=== PATIENT | male | born 1985 | race African-American/Black ===

== ENCOUNTER 2018-02-06 13:20 | Emergency (ER) | payer SELFPAY ==
--- NOTE | 2018-02-06 13:45 | ED Physician Chart ---
ED Chief Complaint/HPI - Patient Information Date Seen:: 02/06/18 Time Seen:: 13:41 Chief Complaint:: Chest pain History of Present Illness:: 32 yo male had chest pain since 9am today. He described as sharp pain, lasting 4 seconds, every half hour. radiating to right shoulder. Lying flat or on the side seemed to worsen the pain. Patient denied SOB or chest pressure. Allergies:: Allergies Allergy/AdvReac Type Severity Reaction Status Date / Time No Known Allergies Allergy Verified 02/06/18 13:35 Vitals:: Vital Signs - 8 hr 02/06/18 13:35 Temp 98.1 F HR 80 RR 18 BP 146/84 O2 Sat % 96 ED Past Medical History - Past Medical History Past Medical History: No significant medical hx Social History: Smoker, Alcohol, No Drug Use Surgical History: None Family Medical History - Family Member Father Ethnicity: Non- Living Status: Still Living Hx Family Cancer: No Hx Family Coronary Artery Disease: No Hx Family Congestive Heart Failure: No Hx Family Hypertension: Yes Hx Family Stroke: No Hx Family Diabetes: No Hx Family Seizures: No Hx Family Dementia: No Hx Family AIDS: No Hx Family HIV: No Hx Family COPD: No Hx Family Hepatitis: No Hx Family Psychiatric Problems: No Hx Family Tuberculosis: No ED Assessment - Assessment General Assessment: Acute pericarditis ED Septic Shock - . Is Septic Shock (SBP<90, OR Lactate>4 mmol\L) present?: No - <6hrs of presentation: Vital Signs: Vital Signs - 8 hr 02/06/18 13:35 Temp 98.1 F HR 80 RR 18 BP 146/84 O2 Sat % 96 ED Reassessment (Disposition) - Reassessment Reassessment Condition:: Improved - Patient Disposition Discharge/Transfer:: Home
[2018-02-06 13:59] VITALS: BP 146/84
[2018-02-06 14:11] LABS: % BASOPHILS 0.1 % (0.0-2.0); % EOSINOPHILS 0.8 % (0.0-5.0); % LYMPHOCYTES 18.9 % (20.0-50.0); % NEUTROPHILS 71.2 % (40.0-80.0); HEMATOCRIT 48.9 % (41.0-60); HEMOGLOBIN 16.4 gm/dL (12-16); LYMPHOCYTE ABSOLUTE 0.9 Th/cmm (1.5-3.0); MEAN CELL VOLUME 97.3 fl (80-99); MEAN CORPUSCULAR HEMOGLOBIN 32.6 pg (26.0-30.0); MEAN CORPUSCULAR HGB CONC 33.5 pg (28.0-36.0); MEAN PLATELET VOLUME 7.9 fl; MONOCYTE ABSOLUTE 0.4 Th/cmm (0.3-1.0); NEUTROPHILE ABSOLUTE 3.6 Th/cmm (1.8-8.0); PLATELET COUNT 208 Th/cmm (150-400); RED BLOOD COUNT 5.02 Mil/cmm (4.30-5.70); RED CELL DISTRIBUTION WIDTH 12.3 % (11.5-20.0); WHITE BLOOD COUNT 4.9 Th/cmm (4.8-10.8)
--- NOTE | 2018-02-06 14:18 | Diagnostic Imaging Report ---
Portable chest x-ray History: Pain Allowing for portable technique the heart size is normal. No focal pulmonary parenchymal processes. No hilar or mediastinal abnormalities. Impression: No acute abnormalities.
[2018-02-06 14:28] LABS: ALB/GLOB RATIO 1.6 (1.0-1.8); ALBUMIN 4.8 gm/dL (4.2-5.5); ALKALINE PHOSPHATASE 56 U/L (34-104); ANION GAP 7.4 (7.0-16.0); BILIRUBIN,DIRECT 0.29 mg/dL (0.0-0.2); BUN - UREA NITROGEN 11 mg/dL (7-25); CALCIUM SERUM 10.1 mg/dL (8.6-10.3); CARBON DIOXIDE 29.3 mEq/L (21.0-31.0); CHLORIDE 104 mEq/L (98-107); CREATININE - SERUM 0.9 mg/dL (0.7-1.3); GFR AFRICAN-AMERICAN > 60.0 ml/min (>90); GFR NON AFRICAN-AMERICAN > 60.0 ml/min; GLUCOSE 86 mg/dL (70-105); POTASSIUM SERUM 3.7 mEq/L (3.5-5.1); SGOT 17 U/L (13-39); SGPT/ALT 9 U/L (7-52); SODIUM SERUM 137 mEq/L (136-145); TOTAL PROTEIN,SERUM 7.8 gm/dL (6.0-8.3)
== END 2018-02-06 15:55 | disposition home or self-care (01) ==
LOC: ER 13:20
DX: R07.9 Chest pain, unspecified (principal); F17.200 Nicotine dependence, unspecified, uncomplicated
CPT/HCPCS: 36415-UA; 71045-TC; 80053-TC; 82248-TC; 83880-TC; 84443-TC; 84484-TC; 85025-TC; 93005

== ENCOUNTER 2019-03-30 05:46 | Inpatient (IN) | payer BC, MEDICAID ==
--- NOTE | 2019-03-30 06:21 | ED Physician Chart ---
ED Chief Complaint/HPI - Patient Information Date Seen:: 03/30/19 Time Seen:: 06:15 Chief Complaint:: Chest discomfort History of Present Illness:: Pt came in by private auto because of transient left parasternal chest "cramp" sensation that lasted for a few seconds while he was sleeping at about 0530 today. No associated dyspnea or palpitation. Pt exercises at least an hour in the gym twice weekly without exercise limitation. No fever. No cough. Pt currently feels well without chest pain or discomfort. Allergies:: Allergies Allergy/AdvReac Type Severity Reaction Status Date / Time No Known Allergies Allergy Verified 03/30/19 05:59 Vitals:: Vital Signs - 8 hr 03/30/19 05:50 Temp 98.1 F HR 77 RR 18 BP 119/70 O2 Sat % 98 Historian:: Patient Family MD/PCP:: Dr. Barrera. LMP:: N/A Review:: Nurse's Note Reviewed <Erick Navarro - Last Filed: 03/30/19 06:52> - Patient Information Allergies:: Allergies Allergy/AdvReac Type Severity Reaction Status Date / Time No Known Allergies Allergy Verified 03/30/19 05:59 Vitals:: Vital Signs - 8 hr 03/30/19 05:50 Temp 98.1 F HR 77 RR 18 BP 119/70 O2 Sat % 98 <Alfredo Meehan - Last Filed: 03/30/19 10:34> ED Review of Systems - Review of Systems General/Constitutional: No weight loss, No weakness, No edema, No loss of appetite Skin: No skin lesions, No rash, No bruising Head: No light-headedness Eyes: No loss of vision, No pain, No diplopia ENT: No earache, No nasal drainage, No sore throat Neck: No neck pain, No swelling, No thyromegaly, No stiffness Cardio Vascular: No chest pain, No palpitations, No PND, No orthopnea, No edema Pulmonary: No SOB, No cough, No wheezing GI: No nausea, No vomiting, No diarrhea, No pain G/U: No dysuria, No frequency, No hematuria Musculoskeletal: No bone or joint pain, No back pain Endocrine: No polydipsia Psychiatric: No prior psych history, No depression Hematopoietic: No bruising, No lymphadenopathy Neurological: No syncope, No focal symptoms, Weakness, No paresthesia, No headache, No dizziness, No confusion <Erick Navarro - Last Filed: 03/30/19 06:52> ED Past Medical History - Past Medical History Past Medical History: No significant medical hx Family History: HTN (in father) Social History: Non Smoker, Alcohol (occasional.), No Drug Use, Single, Employed , Other (lives with his mother.) Surgical History: None Psychiatricy History: None Medication: None <Erick Navarro - Last Filed: 03/30/19 06:52> Family Medical History - Family Member Father History Unknown: Yes Ethnicity: Non- Living Status: Still Living Hx Family Cancer: No Hx Family Coronary Artery Disease: No Hx Family Congestive Heart Failure: No Hx Family Hypertension: Yes Hx Family Stroke: No Hx Family Diabetes: No Hx Family Seizures: No Hx Family Dementia: No Hx Family AIDS: No Hx Family HIV: No Hx Family COPD: No Hx Family Hepatitis: No Hx Family Psychiatric Problems: No Hx Family Tuberculosis: No <Erick Navarro - Last Filed: 03/30/19 06:52> ED Physical Exam - Physical Examination General/Constitutional: Awake, Well-developed, well-nourished, Alert, No distress, Non-toxic appearing, Ambulatory Other Gen/Cons comments:: Breathes comfortably and speaks clearly. Head: Atraumatic Eyes: Lids, conjuctiva normal, PERRL, EOMI Skin: No rash, Well hydrated, No lymphadenopathy ENMT: External ears, nose nl, Nasal exam nl, Oropharynx nl Neck: Nontender, Full ROM w/o pain, No JVD, No nuchal rigidity, No bruit, No mass Respiratory: Nl effort/Exclusion, Clear to Auscultation, No Wheeze/Rhonchi/Rales Other Respiratory comments:: Chest wall: tatoos are noticed. Nontender to palpation. No open wound, erythema , ecchymosis or swelling. Cardio Vascular: RRR, No murmur, gallop, rubs, NL S1 S2, Carotid/Femoral/Distal pulses equal bilaterally GI: No tenderness/rebounding/guarding, No organomegaly, Nondistended, No mass/ bruits Other GI comments:: Abdomen is soft. Extremities: No tenderness or effusion, normal strength in all extremities, No edema Neuro/Psych: Alert/oriented (oriented x 3), Mood normal, Normal gait, No focal deficits <Erick Navarro - Last Filed: 03/30/19 06:52> ED Labs/Radiology/EKG Results - EKG Interpretations EKG Time:: 06:43 Rate & Rhythm: NSR with VR 69 Comments:: Mild ST elevation c/w J point elevation vs acute pericarditis. <Erick Navarro - Last Filed: 03/30/19 06:52> - Lab Results Results: Laboratory Tests 03/30/19 03/30/19 03/30/19 06:30 06:30 07:00 WBC 5.2 RBC 5.08 Hgb 16.1 Hct 48.4 MCV 95.2 MCH 31.6 H MCHC Differential 33.2 RDW 12.4 Plt Count 220 MPV 7.4 Neutrophils % 66.5 Lymphocytes % 21.4 Monocytes % 9.3 Eosinophils % 2.7 Basophils % 0.1 PT INR PTT (Actin FS) Sodium Potassium Chloride Carbon Dioxide Anion Gap BUN Creatinine Est GFR ( Amer) Est GFR (Non-Af Amer) BUN/Creatinine Ratio Glucose Calcium Troponin I Urine Source RANDOM Urine Color YELLOW Urine Clarity CLEAR Urine pH 8.0 Ur Specific [place] 1.015 Urine Protein NEGATIVE Urine Glucose (UA) NEGATIVE Urine Ketones NEGATIVE Urine Blood NEGATIVE Urine Nitrate NEGATIVE Urine Bilirubin NEGATIVE Urine Urobilinogen 0.2 Ur Leukocyte Esterase NEGATIVE Urine Opiates Screen NEGATIVE Urine Methadone Screen NEGATIVE Ur Barbiturates Screen NEGATIVE Ur Tricyclics Screen NEGATIVE Ur Phencyclidine Scrn NEGATIVE Amphetamines Screen NEGATIVE U Methamphetamines Scrn NEGATIVE U Benzodiazepines Scrn NEGATIVE U Cocaine Metab Screen NEGATIVE U Cannabinoids Screen NEGATIVE 03/30/19 03/30/19 03/30/19 07:00 07:00 07:00 WBC RBC Hgb Hct MCV MCH MCHC Differential RDW Plt Count MPV Neutrophils % Lymphocytes % Monocytes % Eosinophils % Basophils % PT 10.5 INR 1.01 PTT (Actin FS) 30.5 Sodium 140 Potassium 3.5 Chloride 103 Carbon Dioxide 30.2 Anion Gap 10.3 BUN 10 Creatinine 1.0 Est GFR ( Amer) > 60.0 Est GFR (Non-Af Amer) > 60.0 BUN/Creatinine Ratio 10.0 Glucose 115 H Calcium 9.4 Troponin I < 0.01 L Urine Source Urine Color Urine Clarity Urine pH Ur Specific [place] Urine Protein Urine Glucose (UA) Urine Ketones Urine Blood Urine Nitrate Urine Bilirubin Urine Urobilinogen Ur Leukocyte Esterase Urine Opiates Screen Urine Methadone Screen Ur Barbiturates Screen Ur Tricyclics Screen Ur Phencyclidine Scrn Amphetamines Screen U Methamphetamines Scrn U Benzodiazepines Scrn U Cocaine Metab Screen U Cannabinoids Screen <Alfredo Meehan - Last Filed: 03/30/19 10:34> ED Assessment - Assessment General Assessment: atypical chest pain with j point elevation ro subacute pericarditis <Alfredo Meehan - Last Filed: 03/30/19 10:34> ED Septic Shock - . Is Septic Shock (SBP<90, OR Lactate>4 mmol\\L) present?: No - <6hrs of presentation: Vital Signs: Vital Signs - 8 hr 03/30/19 05:50 Temp 98.1 F HR 77 RR 18 BP 119/70 O2 Sat % 98 <Erick Navarro - Last Filed: 03/30/19 06:52> - <6hrs of presentation: Vital Signs: Vital Signs - 8 hr 03/30/19 05:50 Temp 98.1 F HR 77 RR 18 BP 119/70 O2 Sat % 98 <Alfredo Meehan - Last Filed: 03/30/19 10:34> ED Reassessment (Disposition) - Reassessment Reassessment:: 0655 Pt remains stable without chest pain or discomfort. Case has been signed off to Dr. Meehan for continued care and review of pending lab results and CXR. - Diagnosis Diagnosis:: Chest pain <Erick Navarro - Last Filed: 03/30/19 06:52> - Reassessment Reassessment Condition:: Unchanged (will transfer for evaluation ofabnormal ekg) <Alfredo Meehan - Last Filed: 03/30/19 10:34>
[2019-03-30 07:07] LABS: EOSINOPHILE ABSOLUTE 0.1 Th/cmm (0.1-0.4); MONOCYTE ABSOLUTE 0.5 Th/cmm (0.3-1.0)
[2019-03-30 07:16] LABS: % BASOPHILS 0.1 % (0.0-2.0); % EOSINOPHILS 2.7 % (0.0-5.0); % LYMPHOCYTES 21.4 % (20.0-50.0); % MONOCYTES 9.3 % (2.0-10.0); % NEUTROPHILS 66.5 % (40.0-80.0); HEMATOCRIT 48.4 % (41.0-60); HEMOGLOBIN 16.1 gm/dL (12-16); LYMPHOCYTE ABSOLUTE 1.1 Th/cmm (1.5-3.0); MEAN CELL VOLUME 95.2 fl (80-99); MEAN CORPUSCULAR HEMOGLOBIN 31.6 pg (26.0-30.0); MEAN CORPUSCULAR HGB CONC 33.2 pg (28.0-36.0); MEAN PLATELET VOLUME 7.4 fl; NEUTROPHILE ABSOLUTE 3.5 Th/cmm (1.8-8.0); PLATELET COUNT 220 Th/cmm (150-400); RED BLOOD COUNT 5.08 Mil/cmm (4.30-5.70); RED CELL DISTRIBUTION WIDTH 12.4 % (11.5-20.0); WHITE BLOOD COUNT 5.2 Th/cmm (4.8-10.8)
[2019-03-30 07:19] LABS: INR 1.01 (0.5-1.4); PROTHROMBIN TIME (TEST) 10.5 SECONDS (9.5-11.5)
[2019-03-30 07:26] LABS: ANION GAP 10.3 (7.0-16.0); BUN - UREA NITROGEN 10 mg/dL (7-25); CALCIUM SERUM 9.4 mg/dL (8.6-10.3); CARBON DIOXIDE 30.2 mEq/L (21.0-31.0); CHLORIDE 103 mEq/L (98-107); GFR AFRICAN-AMERICAN > 60.0 ml/min (>90); GFR NON AFRICAN-AMERICAN > 60.0 ml/min; GLUCOSE 115 mg/dL (70-105); POTASSIUM SERUM 3.5 mEq/L (3.5-5.1); SODIUM SERUM 140 mEq/L (136-145)
[2019-03-30 08:21] LABS: URINE SOURCE RANDOM
--- NOTE | 2019-03-30 08:37 | Diagnostic Imaging Report ---
CHEST X-RAY: AP view INDICATION: Chest discomfort COMPARISON: 02/06/2019 FINDINGS: There is no focal consolidation or pleural effusions The heart is normal in size. The osseous structures demonstrate no acute abnormalities. IMPRESSION: No acute cardiopulmonary disease.
[2019-03-30 08:42] LABS: AMPHETAMINE URINE NEGATIVE (NEGATIVE); BARBITURATES URINE NEGATIVE (NEGATIVE); BENZODIAZEPINES QUAL URINE NEGATIVE (NEGATIVE); CANNABINOID THC NEGATIVE (NEGATIVE); COCAINE METABOLITE QUAL URINE NEGATIVE (NEGATIVE); METHADONE URINE NEGATIVE (NEGATIVE); METHAMPHETAMINES QUAL URINE NEGATIVE (NEGATIVE); OPIATES (MORPHINE) QUAL. URINE NEGATIVE (NEGATIVE); PHENCYCLIDINE (PCP) URINE NEGATIVE (NEGATIVE); TRICYCLICS (TCA) QUAL. URINE NEGATIVE (NEGATIVE)
[2019-03-30 08:45] LABS: URINE BILIRUBIN NEGATIVE (NEGATIVE); URINE BLOOD NEGATIVE (NEGATIVE); URINE GLUCOSE (UA) NEGATIVE (NEGATIVE); URINE KETONE NEGATIVE (NEGATIVE); URINE LEUKOCYTE ESTERASE NEGATIVE (NEGATIVE); URINE NITRATE NEGATIVE (NEGATIVE); URINE PROTEIN NEGATIVE (NEGATIVE); URINE UROBILINOGEN 0.2 E.U./dL (0.2 - 1.0)
[2019-03-30 08:46] LABS: URINE COLOR YELLOW
[2019-03-30 08:47] LABS: URINE CLARITY CLEAR (CLEAR); URINE MICROSCOPIC INDICATED? NO
[2019-03-30 13:24] VITALS: BP 127/65
--- NOTE | 2019-03-31 06:19 | History and Physical ---
History of Present Illness - HPI Chief Complaint: chest pain HPI: 34 y/o male who presents to [facility] ER for left parasternal chest pain which began prior to admission. Patient denies shortness of breath or palpitations. Patient has a history of HTN. Patient describes the pain to be "cramping" sensation which last a few seconds. Patient is fairly active and states that he reguarly exercises without limitation. Patient denies fever or cough. While in the ER patient had CXR which was negative. Initial labwork done in the ER was the following. WBC 5.2 H/H 16.1/48.4 plat 220K Na 140 K 3.5 Bun/Cr 10/1.0 glu 115 troponin <0.01 Patient was admitted under observation for further evaluation and treatment. Vital Signs: Last Vital Signs Temp 97.6 F 03/31/19 04:00 Pulse 62 03/31/19 04:00 Resp 18 03/31/19 04:52 BP 101/57 03/31/19 04:00 Pulse Ox 98 03/31/19 04:00 Past Medical History Cardiovascular: Report: HTN Pulmonary: Report: No Pertinent Hx OVERLAY OPERATOR: Report: No Pertinent Hx GI: Report: No Pertinent Hx Psych: Report: No Pertinent Hx Musculoskeletal: Report: No Pertinent Hx Rheumatologic: Report: No pertinent Hx Infectious Disease: Report: No Pertinent Hx Renal/: Report: No Pertinent Hx Endocrine: Report: No Pertinent Hx Dermatology: Report: No Pertinent Hx - Past Surgical History Past Surgical History: No pertinent Hx Family Medical History - Family Member Father History Unknown: Yes Ethnicity: Non- Living Status: Still Living Hx Family Cancer: No Hx Family Coronary Artery Disease: No Hx Family Congestive Heart Failure: No Hx Family Hypertension: Yes Hx Family Stroke: No Hx Family Diabetes: No Hx Family Seizures: No Hx Family Dementia: No Hx Family AIDS: No Hx Family HIV: No Hx Family COPD: No Hx Family Hepatitis: No Hx Family Psychiatric Problems: No Hx Family Tuberculosis: No Social History Smoke: No Alcohol: None Drugs: None Lives: Alone - Medications Home Medications: Home Medication Medication Instructions Recorded Type Ibuprofen [Motrin*] 800 mg PO BID #14 tab 02/06/18 Rx - Allergies Allergies/Adverse Reactions: Allergies Allergy/AdvReac Type Severity Reaction Status Date / Time No Known Allergies Allergy Verified 03/30/19 05:59 Review of Systems - Review of Systems Constitutional: Report: No Significant Eyes: Report: No Significant ENT: Report: No Significant Respiratory: Denies: Cough, SOB with Excertion Cardiovascular: Report: Chest Pain Gastrointestinal: Report: No Significant Genitourinary: Report: No Significant Musculoskeletal: Report: No Significant Skin: Report: No Significant Neurological: Report: No Significant Physical Exam - Physical Exam HEENT: Report: Ears Nose Throat within normal limits, Pharnyx within normal limits Neck: Report: Within normal limits Cardiovascular Systems: Report: +s1/s2 noted, Regular, Rate and Rhythm Respiratory: Report: Breath Sounds are within normal limits Abdomen: Report: Non-tender to palpation Back: Report: Inspection of back is within normal limits. Extremities: Report: Non-tender to palpation. Neuro/Psych: Report: Mood affect is within normal limits - Lab Results All Lab Results last 24 hours: Laboratory Results - last 24 hr 03/30/19 03/30/19 03/30/19 06:30 06:30 07:00 WBC 5.2 RBC 5.08 Hgb 16.1 Hct 48.4 MCV 95.2 MCH 31.6 H MCHC Differential 33.2 RDW 12.4 Plt Count 220 MPV 7.4 Neutrophils % 66.5 Lymphocytes % 21.4 Monocytes % 9.3 Eosinophils % 2.7 Basophils % 0.1 PT INR PTT (Actin FS) Sodium Potassium Chloride Carbon Dioxide Anion Gap BUN Creatinine Est GFR ( Amer) Est GFR (Non-Af Amer) BUN/Creatinine Ratio Glucose POC Glucose Calcium Troponin I Urine Source RANDOM Urine Color YELLOW Urine Clarity CLEAR Urine pH 8.0 Ur Specific [place] 1.015 Urine Protein NEGATIVE Urine Glucose (UA) NEGATIVE Urine Ketones NEGATIVE Urine Blood NEGATIVE Urine Nitrate NEGATIVE Urine Bilirubin NEGATIVE Urine Urobilinogen 0.2 Ur Leukocyte Esterase NEGATIVE Urine Opiates Screen NEGATIVE Urine Methadone Screen NEGATIVE Ur Barbiturates Screen NEGATIVE Ur Tricyclics Screen NEGATIVE Ur Phencyclidine Scrn NEGATIVE Amphetamines Screen NEGATIVE U Methamphetamines Scrn NEGATIVE U Benzodiazepines Scrn NEGATIVE U Cocaine Metab Screen NEGATIVE U Cannabinoids Screen NEGATIVE 03/30/19 03/30/19 03/30/19 07:00 07:00 07:00 WBC RBC Hgb Hct MCV MCH MCHC Differential RDW Plt Count MPV Neutrophils % Lymphocytes % Monocytes % Eosinophils % Basophils % PT 10.5 INR 1.01 PTT (Actin FS) 30.5 Sodium 140 Potassium 3.5 Chloride 103 Carbon Dioxide 30.2 Anion Gap 10.3 BUN 10 Creatinine 1.0 Est GFR ( Amer) > 60.0 Est GFR (Non-Af Amer) > 60.0 BUN/Creatinine Ratio 10.0 Glucose 115 H POC Glucose Calcium 9.4 Troponin I < 0.01 L Urine Source Urine Color Urine Clarity Urine pH Ur Specific [place] Urine Protein Urine Glucose (UA) Urine Ketones Urine Blood Urine Nitrate Urine Bilirubin Urine Urobilinogen Ur Leukocyte Esterase Urine Opiates Screen Urine Methadone Screen Ur Barbiturates Screen Ur Tricyclics Screen Ur Phencyclidine Scrn Amphetamines Screen U Methamphetamines Scrn U Benzodiazepines Scrn U Cocaine Metab Screen U Cannabinoids Screen 03/30/19 03/30/19 03/30/19 10:10 13:01 18:27 WBC RBC Hgb Hct MCV MCH MCHC Differential RDW Plt Count MPV Neutrophils % Lymphocytes % Monocytes % Eosinophils % Basophils % PT INR PTT (Actin FS) Sodium Potassium Chloride Carbon Dioxide Anion Gap BUN Creatinine Est GFR ( Amer) Est GFR (Non-Af Amer) BUN/Creatinine Ratio Glucose POC Glucose 77 Calcium Troponin I < 0.01 L < 0.01 L Urine Source Urine Color Urine Clarity Urine pH Ur Specific [place] Urine Protein Urine Glucose (UA) Urine Ketones Urine Blood Urine Nitrate Urine Bilirubin Urine Urobilinogen Ur Leukocyte Esterase Urine Opiates Screen Urine Methadone Screen Ur Barbiturates Screen Ur Tricyclics Screen Ur Phencyclidine Scrn Amphetamines Screen U Methamphetamines Scrn U Benzodiazepines Scrn U Cocaine Metab Screen U Cannabinoids Screen 03/31/19 02:40 WBC RBC Hgb Hct MCV MCH MCHC Differential RDW Plt Count MPV Neutrophils % Lymphocytes % Monocytes % Eosinophils % Basophils % PT INR PTT (Actin FS) Sodium Potassium Chloride Carbon Dioxide Anion Gap BUN Creatinine Est GFR ( Amer) Est GFR (Non-Af Amer) BUN/Creatinine Ratio Glucose POC Glucose Calcium Troponin I < 0.01 L Urine Source Urine Color Urine Clarity Urine pH Ur Specific [place] Urine Protein Urine Glucose (UA) Urine Ketones Urine Blood Urine Nitrate Urine Bilirubin Urine Urobilinogen Ur Leukocyte Esterase Urine Opiates Screen Urine Methadone Screen Ur Barbiturates Screen Ur Tricyclics Screen Ur Phencyclidine Scrn Amphetamines Screen U Methamphetamines Scrn U Benzodiazepines Scrn U Cocaine Metab Screen U Cannabinoids Screen - Assessment Assessment: chest pain r/o acute coronary syndrome HTN - Plan Plan: [facility] consult [facility]
[2019-03-31 08:40] LABS: CHOLESTEROL 132 mg/dL (<200); HDL -HIGH DENSITY LIPOPROTEIN 45 mg/dL (23-92); TRIGLYCERIDES 62 mg/dL (<150)
--- NOTE | 2019-04-01 04:37 | Consultation ---
DATE OF CONSULTATION: 03/31/[address] Dietrich. HISTORY OF PRESENT ILLNESS: This is a 4-year-old -[place] male patient who has been complaining of chest pain, more like cramps. Following this, the patient came to the Emergency Room. It lasted for few seconds. No history of PND, orthopnea. PAST MEDICAL HISTORY: Hypertension. FAMILY HISTORY: Unremarkable. SOCIAL HISTORY: No history of smoking, alcohol abuse. ALLERGIES: None. PHYSICAL EXAMINATION: VITAL SIGNS: Blood pressure 100/50, pulse 70, respirations 20. HEAD: Normocephalic. No lumps or bumps. EYES: Pupils equal, reactive to light. Fundi show AV nicking, sclerae white, conjunctivae pink. NECK: Carotid 2+. Normal upstroke. JVD flat. Thyroid not palpable. Lymph nodes not palpable. CHEST: Shows increased AP diameter. No kyphosis or scoliosis. LUNGS: Bilateral bronchovesicular breath sounds. HEART: PMI fifth intercostal space with lateral to midclavicular line. S1, S2. No S3, S4, soft systolic murmur. ABDOMEN: Soft. Liver, spleen not palpable. No organomegaly. Bowel sounds active. NEUROLOGIC: Unremarkable. EXTREMITIES: Peripheral pulses 2+. No pedal edema. CLINICAL IMPRESSION: 1. Chest pain. 2. Hypertension. Troponin level, EKG. The patient's chest pain is atypical. The patient can be discharged. [facility]# [id number]
--- NOTE | 2019-04-03 17:34 | Discharge Summary ---
DATE OF DISCHARGE: 03/31/2019 PRELIMINARY DIAGNOSES: 1. Chest pain, rule out acute coronary syndrome. 2. Hypertension. DISCHARGE DIAGNOSES: 1. Chest pain, acute coronary syndrome ruled out, most likely costochondritis. 2. Hypertension. HISTORY OF PRESENT ILLNESS: This is a 34-year-old male, who presents to [facility] ER for left parasternal chest pain, which began prior to admission. The patient denies any shortness of breath or palpitations. The patient has a history of hypertension. He describes the pain to be cramping sensation, which lasts a few seconds. The patient is a fairly active individual. Irregularly exercises without limitations. Denies any fever or chills. Denies any cough. While in the ER, chest x-ray was done, which was essentially negative. His initial lab work done in the ER was the following: White count was 5.2, hemoglobin 16.1, hematocrit 48.4, platelets 220,000. Sodium 140, potassium 3.5, BUN 10, creatinine 1.0, glucose 115. Troponin was less than 0.01. The patient was subsequently admitted for further evaluation and treatment. HOSPITAL COURSE: The patient improved during his hospital course. He was seen and evaluated by Cardiology, see dictated report. The patient had serial troponin levels done, which were essentially negative. The patient was later discharged home, was told to continue his home medications, and to follow up with his regular physician in 2 to 3 days. [facility]# [id number]
== END 2019-03-31 14:40 | disposition home or self-care (01) | DRG 203 ==
LOC: ER 05:46 → TELE 12:16
PROVIDERS: ADMIT Family Medicine; ATTEND Family Medicine
DX: M94.0 Chondrocostal junction syndrome [Tietze] (principal); I10 Essential (primary) hypertension
CPT/HCPCS: 36415-UA; 71045-TC; 80048-TC; 80061-TC; 80307; 81003-TC; 82948-90; 84443-TC; 84484-TC; 85025-TC; 85610-TC; 90799; 93005; J0330